=== PATIENT | male | born 1985 | race Caucasian/White ===

== ENCOUNTER 2023-05-06 11:25 | Emergency (ER) | payer OTHER ==
--- NOTE | 2023-05-06 11:30 | NUR ---
DR ESTRELLA AT BEDSIDE
[2023-05-06 11:34] VITALS: BP_SYST 129
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
--- NOTE | 2023-05-06 12:20 | NUR ---
PATIENT TO RADIOLOGY FOR XRAYS
[2023-05-06] MEDS ORDERED: SOM350 PO (12:59)
[2023-05-06] MEDS ORDERED: IBUP-1971 PO (12:59)
--- NOTE | 2023-05-06 13:14 | NUR ---
Patient given written and verbal discharge instructions and verbalizes understanding. ER MD ESTRELLA discussed with patient the results and treatment provided. Patient in stable condition. ID arm band removed. Rx of IBUPROFEN given. Patient educated on pain management and to follow up with PMD. Pain Scale 6/10. Opportunity for questions provided and answered. Medication side effect fact sheet provided.
[2023-05-06 15:57] VITALS: BP_SYST 114
== END 2023-05-06 13:14 | disposition home or self-care (01) ==
LOC: SED 11:25
DX: S13.4XXA Sprain of ligaments of cervical spine, initial encounter (principal); S33.5XXA Sprain of ligaments of lumbar spine, initial encounter; Z79.899 Other long term (current) drug therapy; V89.2XXA Person injured in unspecified motor-vehicle accident, traffic, initial encounter; Y93.89 Activity, other specified; Y92.89 Other specified places as the place of occurrence of the external cause; Y99.8 Other external cause status
CPT/HCPCS: 72040-TC; 72100-TC; 99284